=== PATIENT | female | born 1975 | race American Indian/Alaskan Native ===

== ENCOUNTER 2016-05-16 10:14 | Emergency (ER) | payer BC ==
[2016-05-16 11:25] LABS: RBC URINE 37 /hpf (0-3); URINE BACTERIA MANY (<OCC); URINE BILIRUBIN NEGATIVE (NEGATIVE); URINE BLOOD 1+ (NEGATIVE); URINE COLOR Yellow (YELLOW); URINE GLUCOSE (UA) NORMAL (Normal); URINE KETONE TRACE mg/dL (NEGATIVE); URINE LEUKOCYTE ESTERASE 2+ Leu/uL (Negative); URINE PROTEIN 1+ mg/dL (NEGATIVE); WBC URINE 27 /hpf (0-5)
[2016-05-16] MEDS ORDERED: Sodium Chloride 0.9% 1,000 ML IV ONE (13:25)
[2016-05-16] MEDS ORDERED: Sodium Chloride 0.9% 1,000 ML ONE (13:44)
[2016-05-16 13:45] LABS: BASO % 0.7 % (0.0-2.0); EOS # 0.2 K/uL (0.0-0.7); EOS % 3.7 % (0.0-4.0); HEMATOCRIT 37.9 % (34.0-47.0); LYMPH # 2.4 K/uL (1.0-4.3); LYMPH % 41.2 % (20.0-40.0); MEAN CELL VOLUME 79.4 fL (81.0-99.0); MEAN CORPUSCULAR HEMOGLOBIN 25.3 pg (27.0-31.0); MEAN CORPUSCULAR HGB CONC 31.8 g/dL (33.0-37.0); MEAN PLATELET VOLUME 8.7 fL (7.2-11.7); MONO # 0.4 K/uL (0.0-0.8); MONO % 7.5 % (0.0-10.0); NRBC % 0.1 % (0.0-2.0); RED CELL DISTRIBUTION WIDTH 14.3 % (11.5-14.5); WHITE BLOOD COUNT 5.8 K/uL (4.8-10.8)
[2016-05-16 13:53] LABS: CHLORIDE 97 mmol/L (98-107); POTASSIUM 3.8 mmol/L (3.6-5.2); SODIUM 143 mmol/L (132-148)
[2016-05-16 13:55] LABS: ALB/GLOB RATIO 1.1 (1.0-2.1); ALKALINE PHOSPHATASE 72 U/L (38-126); AST/SGOT 28 U/L (14-36); BILIRUBIN,TOTAL 0.6 mg/dL (0.2-1.3); CARBON DIOXIDE 30 mmol/L (22-30); GFR AFRICAN-AMERICAN > 60; TOTAL PROTEIN 8.3 g/dL (6.3-8.3)
[2016-05-16 13:56] LABS: ALT/SGPT 26 U/L (9-52); BLOOD UREA NITROGEN 10 mg/dL (7-17); CALCIUM 8.4 mg/dl (8.6-10.4); GLUCOSE,RANDOM 89 mg/dL (65-105); MAGNESIUM 1.9 mg/dL (1.6-2.3)
--- NOTE | 2016-05-16 14:09 | C.PDOC ---
History Of Present Illness Pt c/o pain in her face, arms and legs that started yesterday with URI symptoms. Pain is now much better. Pt is worried the these are a sign of a stroke. Pt was reassured that these are not symptoms of a stroke. Time Seen by Provider: 05/16/16 13:13 Chief Complaint (Nursing): Flu-like Symptoms History Per: Patient Onset/Duration Of Symptoms: Days (1) Current Symptoms Are (Timing): Better Associated Symptoms: Fever (subjective), Sore Throat, Cough, Myalgias, Nasal Congestion Severity: Moderate Additional History Per: Prior Records Past Medical History Reviewed: Historical Data, Nursing Documentation, Vital Signs Vital Signs: Last Vital Signs Temp 97.7 F 05/16/16 10:20 Pulse 70 05/16/16 10:20 Resp 18 05/16/16 10:20 BP 133/69 05/16/16 10:20 Pulse Ox 100 05/16/16 14:14 - Medical History PMH: Asthma, HTN Family History: States: Unknown Family Hx - Social History Hx Tobacco Use: No Hx Alcohol Use: Yes Hx Substance Use: No - Immunization History Hx Tetanus Toxoid Vaccination: No Hx Influenza Vaccination: No Hx Pneumococcal Vaccination: No Review Of Systems Except As Marked, All Systems Reviewed And Found Negative. Constitutional: Positive for: Malaise ENT: Negative for: Ear Pain Cardiovascular: Negative for: Chest Pain Respiratory: Positive for: Cough. Negative for: Shortness of Breath, Hemoptysis Gastrointestinal: Negative for: Vomiting, Abdominal Pain, Diarrhea Genitourinary: Positive for: Dysuria (?) Musculoskeletal: Negative for: Neck Pain, Back Pain Skin: Negative for: Rash Neurological: Negative for: Weakness, Numbness, Incoordination, Change in Speech , Confusion, Seizures, Altered Mental Status, Headache Physical Exam - Physical Exam Appears: Non-toxic, No Acute Distress Skin: Normal Color, Warm, Dry, No Rash Head: Atraumatic, Normacephalic Eye(s): bilateral: Normal Inspection, PERRL, EOMI Ear(s): Bilateral: Normal Oral Mucosa: Moist, No Drooling, No Trismus Throat: Normal Neck: Normal ROM, Supple Lymphatic: No Adenopathy Cardiovascular: Rhythm Regular Respiratory: Normal Breath Sounds, No Accessory Muscle Use Gastrointestinal/Abdominal: Soft, No Tenderness Back: No CVA Tenderness Extremity: Normal ROM, No Pedal Edema, No Calf Tenderness Neurological/Psych: Oriented x3, Normal Speech, Normal Cognition, Normal Cranial Nerves, No Cerebellar Signs, Normal Motor, Normal Sensation ED Course And Treatment - Laboratory Results Result Diagrams: 05/16/16 13:40 05/16/16 13:40 Interpretation Of Abnormal: UTI Urine POC: Negative O2 Sat by Pulse Oximetry: 100 Pulse Ox Interpretation: Normal Progress - Interventions Interventions:: Observation, Intravenous fluid - Medications Administered Intravenous: NSAID - Data Reviewed Data Reviewed: Lab, Old records - Patient Status Patient status: Mostly improved - Continuity of Care Discussed patient case with:: Patient, ED Nurse - Patient Plan Patient Plan: Discharge, F/U with PCP Disposition Counseled Patient/Family Regarding: Studies Performed, Diagnosis, Need For Followup, Rx Given - Disposition Disposition: HOME/ ROUTINE Disposition Time: 14:15 Condition: IMPROVED Additional Instructions: Drink plenty of fluids. Follow up with your doctor this week. Return to the ER if you develop high fever, lethargy, vomiting, shortness of breath, abdominal pain, worsening of symptoms or if you have any other concerns. Prescriptions: levoFLOXacin [Levaquin] 500 mg PO DAILY #5 tab Instructions: Urinary Tract Infection in Women (ED), Cold Symptoms (ED) - Clinical Impression Clinical Impression: UTI (urinary tract infection), Influenza-like illness
[2016-05-16 14:58] VITALS: BP 134/84; PULSE 81; RESP 16; TEMP 98.5; O2SAT 98
--- NOTE | 2016-05-25 14:13 | CARD ---
APPROVED REPORT EKG Measurement Heart [id number] <Conclusion> Normal sinus rhythm Cannot rule out Anterior infarct, age undetermined Abnormal ECG
== END 2016-05-16 14:50 | disposition home or self-care (01) ==
LOC: C.ER 10:14
DX: N39.0 Urinary tract infection, site not specified (principal); J11.1 Influenza due to unidentified influenza virus with other respiratory manifestations
CPT/HCPCS: 80053; 81001; 82550; 83735; 84703; 85025; 87804; 96374; 99284; J1885; J7040

== ENCOUNTER 2017-02-21 17:36 | Emergency (ER) | payer BC ==
[2017-02-21 18:21] VITALS: BMI 33.2
--- NOTE | 2017-02-21 20:17 | C.PDOC ---
History Of Present Illness 41 year old female with PMHx of HTN and asthma presents to the ED c/o sharp like left sided CP that mostly happens after she coughs. Pain has been intermittent for the past week. Patient denies feeling any CP right now, patient reports she had similar headache previously was seen for it and told the headache was mostly due to stress. Patient reports taking aleve today with some relief. Patient denies fever, chills, diarrhea, constipations, nausea, vomit. Time Seen by Provider: 02/21/17 19:40 Chief Complaint (Nursing): Chest Pain History Per: Patient History/Exam Limitations: no limitations Onset/Duration Of Symptoms: Days Current Symptoms Are (Timing): Gone Quality: Sharp Associated Symptoms: Nausea Modifying Factors: None Exacerbating Factors: None Alleviating Factors: None Recent travel outside of the [place]: No Additional History Per: Patient Past Medical History Reviewed: Historical Data, Nursing Documentation, Vital Signs Vital Signs: Last Vital Signs Temp 98.5 F 02/21/17 18:21 Pulse 65 02/21/17 18:21 Resp 20 02/21/17 18:21 BP 134/92 H 02/21/17 18:21 Pulse Ox 97 02/21/17 20:24 - Medical History PMH: Asthma, HTN Surgical History: No Surg Hx Family History: States: Unknown Family Hx - Social History Hx Tobacco Use: No Hx Alcohol Use: Yes Hx Substance Use: No - Immunization History Hx Tetanus Toxoid Vaccination: No Hx Influenza Vaccination: No Hx Pneumococcal Vaccination: No Review Of Systems Constitutional: Negative for: Fever, Chills Cardiovascular: Positive for: Chest Pain. Negative for: Palpitations Respiratory: Negative for: Cough, Shortness of Breath Gastrointestinal: Negative for: Nausea, Vomiting, Abdominal Pain Genitourinary: Negative for: Dysuria, Hematuria Musculoskeletal: Negative for: Back Pain Skin: Negative for: Rash Neurological: Positive for: Headache, Dizziness. Negative for: Weakness, Numbness Physical Exam - Physical Exam Appears: Non-toxic, No Acute Distress Skin: Normal Color, Warm, Dry Head: Atraumatic, Normacephalic, No Tenderness (sinuses) Nose: No Discharge, No Deformity Oral Mucosa: Moist Neck: Normal ROM, Supple Chest: Symmetrical Cardiovascular: Rhythm Regular, No Murmur Respiratory: Normal Breath Sounds, No Rales, No Rhonchi, No Wheezing Gastrointestinal/Abdominal: Soft, No Tenderness, No Guarding, No Rebound Extremity: Normal ROM, No Pedal Edema, No Calf Tenderness, No Deformity, No Swelling Neurological/Psych: Oriented x3, Normal Speech, Normal Cognition Gait: Steady ED Course And Treatment - Laboratory Results Result Diagrams: 02/21/17 20:32 02/21/17 20:32 Lab Interpretation: Abnormal (d dimer 588, troponin normal) ECG: Interpreted By [place] ECG Rhythm: Sinus Rhythm (with sinus arrhythmia) O2 Sat by Pulse Oximetry: 97 (On RA) Pulse Ox Interpretation: Normal - Radiology CXR: Interpreted by Me CXR Interpretation: Yes: No Acute Disease - CT Scan/US CT Angio PE protocol Other Rad Studies (CT/US): Read By Radiologist, Radiology Report Reviewed CT/US Interpretation: Accession No. : [id number]. Patient Name / ID : ELISE KIMBROUGH / [id number]. Exam Date : 02/21/2017 22:15:03 ( Approved ). Study Comment : Sex / Age : F / 41Y. Creator : Will Fields MD. Dictator : Escrow Closer : Song Writer : Will Fields MD. Approver2 : Report Date : 02/21/2017 22:47:00. My Comment : . [facility] Division of Radiology. [address] [place] [address]. Tel. no. . . . Patient Name: LUIS E OLIVARES . Pt. Address: [address] [place] [address] Rec #: [id number]. [place] [address]: Dona Whittaker MD. Pt Order Location: [facility] : 1975 Female Age: 41 Order #: [id number]. Reason for exam: chest pain with elevated d dimer. . . . . . CT Scan. . . ANGIO CHEST PE PROTOCOL Exam Date: 02/21/17. . This imaging exam was performed at [facility]. EXAM: CT Angiography Chest With Intravenous Contrast. . CLINICAL HISTORY: 41 years old, female; Pain; Chest pressure; Additional info: Chest pain with. elevated d dimer. . TECHNIQUE: Axial computed tomographic angiography images of the chest with intravenous. contrast using pulmonary embolism protocol. All CT scans at this facility use. one or more dose reduction techniques, viz.: automated exposure control; ma/kV. adjustment per patient size (including targeted exams where dose is matched to. indication; i.e. head); or iterative reconstruction technique. MIP reconstructed images were created and reviewed. Coronal and sagittal reformatted images were created and reviewed. . CONTRAST: 100 mL of visipaque 320 administered intravenously. . COMPARISON: No relevant prior studies available. . FINDINGS: Pulmonary arteries: No pulmonary embolism. Aorta: No aneurysm. No dissection. Lungs: No consolidation. Pleural space: No significant effusion. No pneumothorax. Heart: No cardiomegaly. No significant pericardial effusion. Bones/joints: No acute fracture. Soft tissues: Unremarkable. Lymph nodes: No pathologically enlarged lymph nodes. Pancreas: Fatty replacement of visualized enlarged body/tail of pancreas. . IMPRESSION : 1. No CT evidence of pulmonary embolism. 2. Incidental/non-acute findings are described above. . Dictated By: Will Fields MD. Dictated Date/Time: 02/21/172246. Signed By: Will Fields MD. Date Signed: 02/21/172246. Transcribed By: [facility]. Transcribe Date/Time: 02/21/172246. ACYP02/EVENS Reevaluation Time: 22:58 Reassessment Condition: Improved (Patient is pain free at this time.) Medical Decision Making Medical Decision Making: Plan: * EKG * Blood work * CXR * UA Disposition Counseled Patient/Family Regarding: Studies Performed, Diagnosis, Need For Followup - Disposition Referrals: at [facility] [Outside] Disposition: HOME/ ROUTINE Disposition Time: 22:59 Condition: STABLE Additional Instructions: Take Aleve 2 tablets every 12 hours as needed for pain. Instructions: Noncardiac Chest Pain (ED) Forms: [employer] (I[place]ic) - Clinical Impression Clinical Impression: Pleuritic pain, Chest pain - Scribe Statement The provider has reviewed the documentation as recorded by the Scribe Stephon Blevins All medical record entries made by the Scribe were at my direction and personally dictated by me. I have reviewed the chart and agree that the record accurately reflects my personal performance of the history, physical exam, medical decision making, and the department course for this patient. I have also personally directed, reviewed, and agree with the discharge instructions and disposition.
[2017-02-21 20:47] LABS: BASO % 0.5 % (0.0-2.0); EOS # 0.2 K/uL (0.0-0.7); EOS % 2.8 % (0.0-4.0); HEMOGLOBIN 11.4 g/dL (11.0-16.0); LYMPH # 3.9 K/uL (1.0-4.3); LYMPH % 48.6 % (20.0-40.0); MEAN CELL VOLUME 79.9 fL (81.0-99.0); MEAN CORPUSCULAR HGB CONC 32.5 g/dL (33.0-37.0); MEAN PLATELET VOLUME 8.8 fL (7.2-11.7); MONO # 0.4 K/uL (0.0-0.8); MONO % 4.9 % (0.0-10.0); NEUT # 3.5 K/uL (1.8-7.0); NEUT % 43.2 % (50.0-75.0); RBC 4.37 Mil/uL (3.80-5.20); RED CELL DISTRIBUTION WIDTH 14.2 % (11.5-14.5); WHITE BLOOD COUNT 8.1 K/uL (4.8-10.8)
[2017-02-21 20:59] LABS: ALBUMIN 3.9 g/dL (3.5-5.0); ALT/SGPT 33 U/L (9-52); AST/SGOT 22 U/L (14-36); BLOOD UREA NITROGEN 16 mg/dL (7-17); CALCIUM 8.1 mg/dl (8.6-10.4); GFR AFRICAN-AMERICAN > 60; GFR NON-AFRICAN AMERICAN > 60
[2017-02-21] MEDS ORDERED: Iodixanol 320 MG/ML 100 ML BOTTLE IV ONE (22:04)
--- NOTE | 2017-02-21 22:47 | CT ---
EXAM: CT Angiography Chest With Intravenous Contrast CLINICAL HISTORY: 41 years old, female; Pain; Chest pressure; Additional info: Chest pain with elevated d dimer TECHNIQUE: Axial computed tomographic angiography images of the chest with intravenous contrast using pulmonary embolism protocol. All CT scans at this facility use one or more dose reduction techniques, viz.: automated exposure control; ma/kV adjustment per patient size (including targeted exams where dose is matched to indication; i.e. head); or iterative reconstruction technique. MIP reconstructed images were created and reviewed. Coronal and sagittal reformatted images were created and reviewed. CONTRAST: 100 mL of visipaque 320 administered intravenously. COMPARISON: No relevant prior studies available. FINDINGS: Pulmonary arteries: No pulmonary embolism. Aorta: No aneurysm. No dissection. Lungs: No consolidation. Pleural space: No significant effusion. No pneumothorax. Heart: No cardiomegaly. No significant pericardial effusion. Bones/joints: No acute fracture. Soft tissues: Unremarkable. Lymph nodes: No pathologically enlarged lymph nodes. Pancreas: Fatty replacement of visualized enlarged body/tail of pancreas. IMPRESSION: 1. No CT evidence of pulmonary embolism. 2. Incidental/non-acute findings are described above.
[2017-02-21 23:12] VITALS: BP 132/75; PULSE 79; RESP 18; TEMP 98; O2SAT 98
--- NOTE | 2017-02-22 08:10 | RAD ---
HISTORY: chest pain COMPARISON: None TECHNIQUE: Chest one view . FINDINGS: LUNGS: No focal consolidation is seen. PLEURA: No pleural effusion is identified. CARDIOVASCULAR: Heart size is within normal limits. OSSEOUS STRUCTURES: No acute fracture identified. VISUALIZED UPPER ABDOMEN: Unremarkable. OTHER FINDINGS: None. IMPRESSION: No acute cardiopulmonary process seen.
--- NOTE | 2017-02-22 14:09 | CARD ---
APPROVED REPORT EKG Measurement Heart [id number] GA [id number] [id number] <Conclusion> Normal sinus rhythm with sinus arrhythmia
== END 2017-02-21 23:12 | disposition home or self-care (01) ==
LOC: C.ER 17:36
DX: R07.81 Pleurodynia (principal); R07.9 Chest pain, unspecified; I10 Essential (primary) hypertension
CPT/HCPCS: 71045; 71275; 80053; 84484; 84703; 85025; 85378; 93005; 99284; Q9967